=== PATIENT | female | born 1980 | race Asian ===

== ENCOUNTER 2016-11-07 03:20 | Inpatient (IN) | payer BC ==
[2016-11-07] VITALS (40 sets, daily range): BP systolic 93–152; BP diastolic 50–89; PULSE 56–83; TEMP 98.3–99.6
[~2016-11-07] VITALS: Ht 160 cm; Wt 74.5 kg
[2016-11-07] MEDS ORDERED: PRENATAL1 TA7 PO (03:32)
[2016-11-07 04:57] LABS: BASO % 0.5 % (0.0-2.0); EOS % 0.5 % (0-4.0); GRAN # 5.3 (1.4-6.5); GRAN % 70.3 % (42.2-75.2); HEMOGLOBIN 12.1 g/dl (12.5-16.0); LYMPH # 1.5 (1.2-3.4); LYMPH % 19.5 % (20.0-51.0); MEAN CELL VOLUME 93 fl (80.0-100.0); MEAN CORPUSCULAR HEMOGLOBIN 32 pg (27.0-31.0); MEAN CORPUSCULAR HGB CONC 35 g/dl (33.0-37.0); MEAN PLATELET VOLUME 11.1 fl (7.4-10.4); MONO # 0.6 (0.1-0.6); MONO % 8.3 % (1.7-9.3); PLATELET COUNT 161 K/mm3 (130-400); RED BLOOD COUNT 3.74 M/mm3 (4.10-5.30); REDCELL DISTRIBUTION WIDTH-CV 13.8 % (11.5-14.5); WHITE BLOOD COUNT 7.6 K/mm3 (4.8-10.8)
[2016-11-07 04:58] LABS: HEMATOCRIT 34.8 % (37.0-47.0)
[2016-11-08 00:20] VITALS: BP 107/67; PULSE 65; TEMP 97.5
[2016-11-08 06:47] LABS: HEMATOCRIT 27.8 % (37.0-47.0); HEMOGLOBIN 9.4 g/dl (12.5-16.0)
[2016-11-08 08:12] VITALS: BP 106/58; PULSE 61; TEMP 97.8
[2016-11-08] MEDS ORDERED: IBU600 MG PO (12:55)
[2016-11-08] MEDS ORDERED: PERCOCET 325 MG1 TA2 PO (12:56)
[2016-11-08 16:45] VITALS: BP 105/58; PULSE 62; TEMP 97.8
[2016-11-08 20:30] VITALS: BP 121/68; PULSE 69; TEMP 98.1
[2016-11-09 07:35] VITALS: BP 105/87; PULSE 65; TEMP 97.5
== END 2016-11-09 10:50 | disposition home or self-care (01) | DRG 775 ==
LOC: LDRO 03:20 → OB 04:11 → LDR 04:11 → OB 16:43 → LDRO 11-15 06:18
PROVIDERS: Obstetrics & Gynecology
PROC: 10E0XZZ Delivery of Products of Conception, External Approach (ICD-10-PCS; principal; 2016-11-07)
PROC: 0DQR0ZZ Repair Anal Sphincter, Open Approach (ICD-10-PCS; 2016-11-07)
DX: O36.63X0 Maternal care for excessive fetal growth, third trimester, not applicable or unspecified (principal); O70.21 Third degree perineal laceration during delivery, IIIa; O71.7 Obstetric hematoma of pelvis; D62 Acute posthemorrhagic anemia; O90.81 Anemia of the puerperium; Z3A.38 38 weeks gestation of pregnancy; Z37.0 Single live birth
CPT/HCPCS: J2590; J2795; J7120

== ENCOUNTER 2016-11-13 10:25 | Outpatient (RCR) | payer BC ==
[~2016-11-13 10:25] MED LIST: IBU600 MG PO; PERCOCET 325 MG1 TA2 PO; PRENATAL1 TA7 PO
== END 2016-11-13 12:00 | disposition home or self-care (01) ==
LOC: LAC 10:25
DX: Z01.89 Encounter for other specified special examinations (principal)

== ENCOUNTER → 2017-09-13 | Outpatient (CLI) | payer BC | LOC: MC.RAD 08:27 | DX: N64.89 Other specified disorders of breast (principal); N63.20 Unspecified lump in the left breast, unspecified quadrant; N60.02 Solitary cyst of left breast ==

== ENCOUNTER → 2017-09-18 | Outpatient (CLI) | payer BC | LOC: MC.RAD 10:00 | DX: D24.2 Benign neoplasm of left breast (principal); N60.22 Fibroadenosis of left breast | CPT/HCPCS: 30634 ==